=== PATIENT | male | born 1955 | race Caucasian/White ===

== ENCOUNTER 2019-03-29 05:54 | Day surgery (SDC) | payer BC ==
[~2019-03-29] VITALS: Ht 175.3 cm; Wt 108.9 kg
[2019-03-29] MEDS ORDERED: LR 1,000 ML IV SCH (09:50)
[2019-03-29] MEDS ORDERED: ONDANSETRON HCL 4 MG/2 ML VIAL IVP PRN ×2 (10:00→10:45)
[2019-03-29] MEDS ORDERED: HYDROmorphone 2 MG/ML VIAL IVP PRN (10:00)
[2019-03-29] MEDS ORDERED: HYDROmorphone 1 MG INJ. 1 MG/ML AMPUL IVP PRN ×2 (10:00)
[2019-03-29] MEDS ORDERED: THROMBIN (BOVINE) 5000 UNITS/ VIAL TP ONE (10:02)
[2019-03-29] MEDS ORDERED: fentaNYL CITRATE 250 MCG/5 ML AMP ONE (11:05)
[2019-03-29] MEDS ORDERED: PROPOFOL 200MG/ 20ML VIAL (DIPRIVAN) IV ONE (11:05)
[2019-03-29] MEDS ORDERED: NS 1000 ML IV.SOLN IV ONE (11:05)
[2019-03-29] MEDS ORDERED: SUCCINYLCHOLINE CHLORIDE 20 MG/ML(QUELICIN) ONE (11:05)
[2019-03-29] MEDS ORDERED: MIDAZOLAM HCL 5 MG/ML VIAL (VERSED) IV ONE (11:05)
[2019-03-29] MEDS ORDERED: DEXAMETHASONE SOD PHOSPHATE 4 MG/ML VIAL ONE (11:05)
[2019-03-29] MEDS ORDERED: SEVOFLURANE 15 MIN GAS INH ONE (11:05)
[2019-03-29] MEDS ORDERED: ePHEDrine sulfate 50 MG/ML VIAL ONE (11:05)
[2019-03-29] MEDS ORDERED: CEFAZOLIN 2 GM IVPB PREMIX 50 ML IV ONE (11:05)
[2019-03-29] MEDS ORDERED: LIDOCAINE/EPI 1% 1:100000 20 ML VIAL INJ ONE (11:05)
[2019-03-29] MEDS ORDERED: LR 1,000 ML IV.SOLN IV ONE (11:05)
[2019-03-29] MEDS ORDERED: WATER FOR IRRIGATION,STERILE 1,000 ML IRRIG.SOLN IR ONE (11:05)
[2019-03-29 12:00] VITALS: BP_SYST 123
[2019-03-29] MEDS: HYDROcodone/ACETAMIN 5-325 MG TAB (NORCO/ VICODIN) PO PRN ×2 (16:21→21:51)
[2019-03-29] MEDS: NORMAL SALINE 5 ML DISP.SYRIN IVF SCH ×4 (16:25→21:58)
[2019-03-29 20:30] VITALS: BP_SYST 126
[2019-03-29] MEDS: DEXAMETHASONE SOD PHOSPHATE 4 MG/ML VIAL IVP SCH (21:49)
[2019-03-30 01:53] VITALS: BP_SYST 124
[2019-03-30] MEDS: DEXAMETHASONE SOD PHOSPHATE 4 MG/ML VIAL IVP SCH (05:46)
[2019-03-30] MEDS: NORMAL SALINE 5 ML DISP.SYRIN IVF SCH ×2 (05:47→05:51)
[2019-03-30] MEDS: HYDROcodone/ACETAMIN 5-325 MG TAB (NORCO/ VICODIN) PO PRN (05:49)
[2019-03-30 08:00] VITALS: BP_SYST 133
[2019-03-30 09:06] VITALS: BP_SYST 133
== END 2019-03-30 09:40 | disposition still patient (30) ==
LOC: SDS 05:54 → EDSTATUS 07:30 → SMU 12:53 → SDS 03-30 09:40
PROVIDERS: ATTEND Otolaryngology Plastic Surgery within the Head & Neck
DX: E04.2 Nontoxic multinodular goiter (principal); I10 Essential (primary) hypertension; E66.01 Morbid (severe) obesity due to excess calories; M19.90 Unspecified osteoarthritis, unspecified site; Z98.890 Other specified postprocedural states; G62.9 Polyneuropathy, unspecified
CPT/HCPCS: 60220; 87081; 88307; 88333; C1782; J0330; J0690; J1100 ×2; J1170; J2250; J2704; J3010; J7030; J7120